=== PATIENT | female | born 1935 | race Caucasian/White ===

== ENCOUNTER 2017-05-08 11:21 | Inpatient (IN) | payer OTHER ==
[~2017-05-08] VITALS: Ht 157.5 cm; Wt 66.8 kg
[2017-05-08] VITALS (12 sets, daily range): BP systolic 128–180; BP diastolic 62–91
[~2017-05-08 11:21] MED LIST: APRESOLINE25 MG PO; ASPIR-LOW81 MG PO; ASPIRIN81 M1 PO; CLONIDINE HCL0.1 MG PO; EXTRA STRENGTH500 M1 PO; EYE PO; FERROUS SULFAT325 MG PO; FISH OIL 1,2001 EAC1 PO; FISH OIL 1,2001 EAC4 PO; FLEXERIL5 MG PO; HYDROCHLOROTH12.5 M1 PO; HYDROCHLOROTHIA25 MG PO; HYDROCHLOROTHIA50 MG PO; I-CAPS AREDS S1 EACH PO; LEVOTHYROXINE25 MCG PO; PRAVASTATIN SOD20 MG PO; PRILOSEC20 MG PO; QUINAPRIL HCL40 MG PO; QUINAPRIL PO; RANITIDINE HCL150 MG PO; SERTRALINE HCL50 MG PO; SPIRONOLACTONE50 MG PO; TIROSINT50 MCG PO; VITAMIN D31000 UNIT PO; [UNRECOGNIZED DRUG - OTHER] PO; synthroid PO
[2017-05-08 13:08] LABS: CHLORIDE 105 mEq/L (99-109); POTASSIUM 3.9 mEq/L (3.7-5.4); SODIUM 136 mEq/L (136-147)
[2017-05-08 13:10] LABS: EOSINOPHIL (%) 1.6 % (0-5); EOSINOPHIL COUNT 0.1 K/uL (0-0.3); GLUCOSE 163 mg/dL (70-99); HEMATOCRIT 20.8 % (36.0-46.0); IMMATURE GRANULOCYTE (%) 0.6 % (0.0-0.7); IMMATURE GRANULOCYTE COUNT 0.1 K/uL; INSTRUMENT ABS NEUTROPHIL CT 6.5 K/uL; LYMPHOCYTE COUNT 1.4 K/uL (1.0-2.8); MCHC 32.2 G/DL (30.0-36.0); MCV 96.3 FL (83-99); MEAN PLAT.VOLUME 11.7 uM^3 (9.5-12.4); MONOCYTE (%) 5.9 % (3-12); MONOCYTE COUNT 0.5 K/uL (0-0.8); NEUTROPHIL (%) 75.8 % (45-76); NEUTROPHIL COUNT 6.5 K/uL (1.8-6.4); PLATELET COUNT 181 K/uL (156-360); RBC DIS.WIDTH-SD 48.9 % (39-53); RED BLOOD COUNT 2.16 M/uL (3.80-5.20); WHITE BLOOD COUNT 8.6 K/uL (4.1-10.2)
[2017-05-08 13:11] LABS: ANION GAP 9 MEQ/L (2-14)
[2017-05-08 13:14] LABS: GFR ESTIMATE (CALCULATED) 51 mL/min/
[2017-05-08 13:15] LABS: UREA NITROGEN (BUN) 32 mg/dL (9-23)
[2017-05-08 13:16] LABS: TROP-I INTERPRETATION NEGATIVE; TROPONIN-I 0.01 ng/mL (0.0-0.30)
[2017-05-08 15:02] LABS: INTER. NORMALIZED RATIO 1.1; PROTHROMBIN TIME 11.6 SEC (10.2-12.9)
[2017-05-08 20:44] LABS: HEMATOCRIT 25.9 % (36.0-46.0)
[2017-05-09] VITALS (7 sets, daily range): BP systolic 152–177; BP diastolic 70–98
[2017-05-09 08:07] LABS: HEMATOCRIT 27.2 % (36.0-46.0); MCV 90.1 FL (83-99)
[2017-05-09 19:51] LABS: HEMATOCRIT 27.2 % (36.0-46.0)
[2017-05-10 04:42] VITALS: BP 164/82
[2017-05-10 07:07] LABS: BASOPHIL COUNT 0.1 K/uL (0-0.1); EOSINOPHIL (%) 4.5 % (0-5); EOSINOPHIL COUNT 0.4 K/uL (0-0.3); HEMATOCRIT 28.3 % (36.0-46.0); IMMATURE GRANULOCYTE (%) 0.5 % (0.0-0.7); INSTRUMENT ABS NEUTROPHIL CT 5.1 K/uL; LYMPHOCYTE COUNT 1.6 K/uL (1.0-2.8); MCH 30.4 PG (29.0-34.0); MCHC 33.2 G/DL (30.0-36.0); MCV 91.6 FL (83-99); MEAN PLAT.VOLUME 10.8 uM^3 (9.5-12.4); MONOCYTE COUNT 0.8 K/uL (0-0.8); NEUTROPHIL (%) 63.9 % (45-76); NEUTROPHIL COUNT 5.1 K/uL (1.8-6.4); PLATELET COUNT 196 K/uL (156-360); RBC DIS.WIDTH-CV 18.8 % (11.8-14.6); RBC DIS.WIDTH-SD 63.4 % (39-53)
[2017-05-10 07:14] LABS: RED BLOOD COUNT 3.09 M/uL (3.80-5.20)
[2017-05-10 07:25] VITALS: BP 171/76
[2017-05-10 07:30] LABS: ANION GAP 8 MEQ/L (2-14); CHLORIDE 109 MEQ/L (99-109); GFR ESTIMATE (CALCULATED) > 59 mL/min/; POTASSIUM 4.4 MEQ/L (3.7-5.4); SAMPLE HEMOLYSIS CHECK 0; SAMPLE ICTERIC CHECK 0; SAMPLE LIPEMIA CHECK 0; SODIUM 141 MEQ/L (136-147)
[2017-05-10 07:33] LABS: GLUCOSE 94 mg/dL (70-99); UREA NITROGEN (BUN) 11 mg/dL (9-23)
[2017-05-10 10:50] VITALS: BP 142/72
== END 2017-05-10 11:12 | disposition home or self-care (01) | DRG 378 ==
LOC: EME 11:21 → ENRESERV 13:35 → EDOF 13:35 → 2EASTP 13:35 → ENRESERV 13:49 → 2EASTP 15:10
PROVIDERS: Emergency Medicine; Hospitalist; Internal Medicine
PROC: 30233N1 Transfusion of Nonautologous Red Blood Cells into Peripheral Vein, Percutaneous Approach (ICD-10-PCS; principal; 2017-05-08)
DX: K92.1 Melena (principal); Q27.33 Arteriovenous malformation of digestive system vessel; D62 Acute posthemorrhagic anemia; R19.7 Diarrhea, unspecified; E03.9 Hypothyroidism, unspecified; I10 Essential (primary) hypertension; E78.5 Hyperlipidemia, unspecified; K21.9 Gastro-esophageal reflux disease without esophagitis; F41.9 Anxiety disorder, unspecified; Z79.82 Long term (current) use of aspirin
CPT/HCPCS: 36415; 71010; 74176; 80048; 84484; 85014; 85018; 85025; 85027; 85610; 85730; 86850; 86900; 86901; 86920; 93005; 99281; 99285; C9113; J0360; J7030; P9016

== ENCOUNTER → 2017-12-17 | Outpatient (CLI) | payer OTHER ==
[~2017-12-17] VITALS: Ht 154.9 cm; Wt 67.3 kg
[2017-12-17 08:13] VITALS: BP 201/84
[2017-12-17 10:24] VITALS: BP 154/66
== END | disposition home or self-care (01) ==
LOC: IVINF 07:42
DX: D50.9 Iron deficiency anemia, unspecified (principal)
CPT/HCPCS: 96365; 96366; J1756; J7050